=== PATIENT | male | born 1980 | race Caucasian/White ===

== ENCOUNTER 2020-01-15 16:43 | Outpatient (REF) | payer OTHER, SELFPAY ==
[2020-01-15 21:24] LABS: COMMENT (LAB VIEW ONLY) 218.94 mg/dL; Microalb ug/mg Crea 8.9 ug/mg Cr
[2020-01-15 21:32] LABS: Anion Gap 8.4 mmol/L (3-11); BUN 18 mg/dL (7-18); CO2 28.6 mmol/L (21.0-32.0); CREATININE 1.17 mg/dL (0.70-1.30); Calculated LDL 142 mg/dL (<100); Chloride 103 mmol/L (98-107); Cholesterol 219 mg/dL (<200); Glucose 93 mg/dL (74-106); HDL Cholesterol 51 mg/dL (40-60); Sodium 140 mmol/L (136-145); Triglyceride 134 mg/dL (<150)
[2020-01-31 13:08] LABS: Hepatitis C Ab w Rflx HCV PCR Negative (Negative)
== END 2020-01-15 17:03 ==
LOC: NCHCN 16:43
PROVIDERS: Visit Provider Nurse Practitioner Family
DX: Z00.00 Encounter for general adult medical examination without abnormal findings (principal); I10 Essential (primary) hypertension
CPT/HCPCS: 80048; 80061; 86803; 82043; 82570

== ENCOUNTER 2020-04-22 19:29 | Outpatient (REF) | payer OTHER, SELFPAY ==
[2020-04-22 21:43] LABS: Anion Gap 7.6 mmol/L (3-11); BUN 21 mg/dL (7-18); CO2 29.4 mmol/L (21.0-32.0); CREATININE 1.1 mg/dL (0.70-1.30); Calcium 9.9 mg/dL (8.5-10.1); Chloride 102 mmol/L (98-107); Glucose 93 mg/dL (74-106); Potassium 4.2 mmol/L (3.5-5.1); Sodium 139 mmol/L (136-145)
== END 2020-04-22 19:30 | disposition home or self-care (01) ==
LOC: NCHCN 19:29
PROVIDERS: PCP Nurse Practitioner Family; Visit Provider Nurse Practitioner Family
DX: E78.5 Hyperlipidemia, unspecified (principal); I10 Essential (primary) hypertension
CPT/HCPCS: 80048

== ENCOUNTER 2021-08-11 08:21 | Outpatient (REF) | payer OTHER, SELFPAY ==
[2021-08-11 14:59] LABS: Abs Immature Grans 0.02 10^3/uL (0.0-0.06); Absolute Basophil Count 0.04 10^3/uL (0.0-0.2); Absolute Eosinophil Count 0.07 10^3/uL (0.0-0.7); Absolute Lymphocyte Count 0.94 10^3/uL (1.2-3.4); Absolute Neutrophil Count 4.56 10^3/uL (1.2-6.7); Basophils % 0.6; Eosinophils % 1.1; HCT 48.2 % (40.0-50.0); HGB 16.6 g/dL (13.5-17.5); Immature Grans % 0.3; Lymphocytes % 14.8; MCH 31.7 pg (27.0-33.0); MCHC 34.4 % (32.0-36.0); MCV 92 fL (80-95); MPV 9.6 fL (8.0-11.0); Monocytes % 11.1; Neutrophils % 72.1; Platelet Count 301 10^3/uL (130-400); RBC 5.24 10^6/uL (4.36-5.78); RDW 11.9 % (11.8-14.1); RDW-SD 40.3 fL; WBC 6.33 10^3/uL (4.4-10.8)
[2021-08-11 15:38] LABS: ALT 62 U/L (16-63); AST 21 U/L (15-37); Albumin 4.2 g/dL (3.4-5.0); Alkaline Phosphatase 48 U/L (46-116); Anion Gap 7.9 mmol/L (3-11); BUN 18 mg/dL (7-18); Bilirubin, Total 0.4 mg/dL (0.2-1.0); CO2 29.1 mmol/L (21.0-32.0); CREATININE 1.2 mg/dL (0.70-1.30); Calcium 9.7 mg/dL (8.5-10.1); Chloride 104 mmol/L (98-107); Glucose 73 mg/dL (74-106); Potassium 5.4 mmol/L (3.5-5.1); Sodium 141 mmol/L (136-145); Total Protein 7.3 g/dL (6.4-8.2)
[2021-08-11 21:48] LABS: Calculated LDL 123 mg/dL (<100); Cholesterol 220 mg/dL (<200); HDL Cholesterol 55 mg/dL (40-60); Triglyceride 210 mg/dL (<150)
== END 2021-08-11 08:22 | disposition home or self-care (01) ==
LOC: NCHCN 08:21
PROVIDERS: PCP Nurse Practitioner Family; Visit Provider Nurse Practitioner Family
DX: R10.32 Left lower quadrant pain (principal); E78.5 Hyperlipidemia, unspecified; I10 Essential (primary) hypertension
CPT/HCPCS: 80053; 80061; 85025

== ENCOUNTER 2021-09-15 18:55 | Outpatient (REF) | payer OTHER, SELFPAY ==
[2021-09-15 19:32] LABS: Anion Gap 6.5 mmol/L (3-11); BUN 25 mg/dL (7-18); CO2 28.5 mmol/L (21.0-32.0); CREATININE 1.3 mg/dL (0.70-1.30); Calcium 9.3 mg/dL (8.5-10.1); Chloride 105 mmol/L (98-107); Glucose 89 mg/dL (74-106); Potassium 4.2 mmol/L (3.5-5.1); Sodium 140 mmol/L (136-145)
== END 2021-09-15 18:56 | disposition home or self-care (01) ==
LOC: NCHCN 18:55
PROVIDERS: PCP Nurse Practitioner Family; Visit Provider Nurse Practitioner Family
DX: E87.5 Hyperkalemia (principal)
CPT/HCPCS: 80048

== ENCOUNTER 2021-10-07 19:56 | Outpatient (REF) | payer OTHER, SELFPAY ==
[2021-10-07 19:44] LABS: Anion Gap 7.6 mmol/L (3-11); BUN 21 mg/dL (7-18); CO2 28.4 mmol/L (21.0-32.0); CREATININE 1.1 mg/dL (0.70-1.30); Chloride 105 mmol/L (98-107); Glucose 99 mg/dL (74-106); Potassium 4.4 mmol/L (3.5-5.1); Sodium 141 mmol/L (136-145)
== END 2021-10-07 19:57 | disposition home or self-care (01) ==
LOC: NCHCN 19:56
PROVIDERS: PCP Nurse Practitioner Family; Visit Provider Nurse Practitioner Family
DX: I10 Essential (primary) hypertension (principal); E87.5 Hyperkalemia
CPT/HCPCS: 80048

== ENCOUNTER 2025-02-20 14:52 | Outpatient (REF) | payer OTHER, SELFPAY ==
[2025-02-20 21:08] LABS: Glucose Negative (Negative)
[2025-02-20 21:26] LABS: ALT 97 U/L (10-49); AST 38 U/L (<34); Albumin 4.7 g/dL (3.2-5.0); Alkaline Phosphatase 56 U/L (46-116); Anion Gap 9.6 mmol/L (3-11); BUN 18 mg/dL (9-23); Bilirubin, Total 0.4 mg/dL (0.2-1.2); CO2 30.4 mmol/L (20.0-31.0); Calcium 10.0 mg/dL (8.3-10.6); Chloride 103 mmol/L (98-107); Cholesterol 242 mg/dL (<200); Glucose 100 mg/dL (74-106); HDL Cholesterol 58 mg/dL (>or=40); Potassium 4.1 mmol/L (3.5-5.1); Sodium 143 mmol/L (136-145); Total Protein 7.3 g/dL (5.7-8.2)
== END 2025-02-20 14:53 | disposition home or self-care (01) ==
LOC: NCHCN 14:52
PROVIDERS: PCP Nurse Practitioner Family; Visit Provider Nurse Practitioner Family
DX: I10 Essential (primary) hypertension (principal)
CPT/HCPCS: 80053; 80061; 81003; 82043; 82570